=== PATIENT | male | born 1980 | race Caucasian/White ===

== ENCOUNTER → 2021-06-23 | Outpatient (CLI) | payer OTHER ==
--- NOTE | 2021-06-23 08:32 | RAD ---
EXAM: Abdomen sonogram. HISTORY: Elevated liver enzyme function laboratory values. TECHNIQUE: Sonographic imaging of the abdomen was performed. COMPARISON: None. FINDINGS: The liver is normal in size. No focal hepatic lesion is seen. The gallbladder is distended. There is no gallbladder wall thickening. The common bile duct is normal in caliber. The kidneys are normal in size. There is no hydronephrosis or solid or cystic renal lesion. The spleen is normal in s ize. The aorta is normal in caliber. The inferior vena cava is patent. The pancreas is obscured due t o bowel gas. IMPRESSION: 1. Distended gallbladder, likely due to the preprandial status of the patient. There is no evidence o f cholecystitis. 2. Sonographically unremarkable liver. 3. No acute sonographic finding. Electronically signed by: Socorro Shah MD (06/23/2021 8:30 AM) [id number]
== END ==
LOC: US 09:27
PROVIDERS: ATTEND Family Medicine
DX: K82.8 Other specified diseases of gallbladder (principal); R79.89 Other specified abnormal findings of blood chemistry
CPT/HCPCS: 76700